=== PATIENT | female | born 1970 | race American Indian/Alaskan Native ===

== ENCOUNTER 2019-09-10 19:27 | Emergency (ER) | payer BC ==
--- NOTE | 2019-09-10 19:56 | Emergency Department Report ---
Blank Doc - Documentation Documentation: 49-year-old female that presents with left leg pain and swelling. Exam: tenderness to the calf area. This initial assessment/diagnostic orders/clinical plan/treatment(s) is/are subject to change based on patient's health status, clinical progression and re- assessment by fellow clinical providers in the ED. Further treatment and workup at subsequent clinical providers discretion. Patient/guardians urged not to elope from the ED as their condition may be serious if not clinically assessed and managed. Initial orders include: 1- Patient sent to [facility] for further evaluation and treatment 2- doppler US
[2019-09-10] MEDS ORDERED: ACETAMINOPHEN 500 MG TAB PO ONE (20:28)
[2019-09-10] MEDS ORDERED: IBUPROFEN 600 MG TAB PO ONE (20:28)
--- NOTE | 2019-09-10 21:01 | Emergency Department Report ---
ED Extremity Problem HPI - General Chief complaint: Extremity Injury, Lower Stated complaint: LEFT LEG SWOLLEN Time Seen by Provider: 09/10/19 19:52 Source: patient Mode of arrival: Ambulatory Limitations: No Limitations - History of Present Illness MD Complaint: extremity pain (left knee), extremity swelling (left knee), joint swelling (left knee), joint paint (left knee) -: Sudden, days(s) (2) Location: left, lower extremity (knee), knee (left) History of Same: No -: Yes arthralgia, No fever, No associated dyspnea, No associated chest pain Radiation: none Severity scale (0 -10): 8 Quality: aching, sharp Consistency: intermittent Improves with: rest Worsens with: weight bearing, walking, exertion, palpation Associated Symptoms: denies other symptoms, arthralgias. denies: chest pain, shortness of breath, fever, myalgias, rash - Related Data Previous Rx's Medication Instructions Recorded Last Taken Type Naproxen 500 mg PO Q12H PRN #30 tablet 09/10/19 Unknown Rx predniSONE [Deltasone] 40 mg PO QDAY #10 tab 09/10/19 Unknown Rx tiZANidine [Zanaflex 4mg TAB] 4 mg PO QHS PRN #15 tablet 09/10/19 Unknown Rx ED Review of Systems ROS: Stated complaint: LEFT LEG SWOLLEN Other details as noted in HPI ED Past Medical Hx - Medications Home Medications: Home Medications Medication Instructions Recorded Confirmed Last Taken Type Naproxen 500 mg PO Q12H PRN #30 tablet 09/10/19 Unknown Rx predniSONE [Deltasone] 40 mg PO QDAY #10 tab 09/10/19 Unknown Rx tiZANidine [Zanaflex 4mg TAB] 4 mg PO QHS PRN #15 tablet 09/10/19 Unknown Rx ED Physical Exam - General Limitations: No Limitations ED Course Vital Signs 09/10/19 19:32 Temperature 97.9 F Pulse Rate 101 H Respiratory 20 Rate Blood Pressure 142/95 O2 Sat by Pulse 97 Oximetry Critical care attestation.: If time is entered above; I have spent that time in minutes in the direct care of this critically ill patient, excluding procedure time. ED Disposition Clinical Impression: Left knee tendonitis, Localized osteoarthritis of left knee Sprain of left knee/leg Qualifiers: Encounter type: initial encounter Qualified Code(s): S83.92XA - Sprain of unspecified site of left knee, initial encounter Disposition: - TO HOME OR SELFCARE Is pt being admited?: No Does the pt Need Aspirin: No Condition: Stable Instructions: Knee Sprain (ED), Tendinitis (ED), Osteoarthritis (ED) Additional Instructions: Take medication with food, drink plenty of fluids and follow-up with your primar care physician in 7 to 10 days for reevaluation. Return to the emergency department immediately if your symptoms get worse or if you develop shortness of breath and chest pain. Prescriptions: tiZANidine [Zanaflex 4mg TAB] 4 mg PO QHS PRN #15 tablet PRN Reason: Muscle Spasm predniSONE [Deltasone] 40 mg PO QDAY #10 tab Naproxen 500 mg PO Q12H PRN #30 tablet PRN Reason: Pain , Severe (7-10) Referrals: PRIMARY MD DAVY [Primary Care Provider] - 3-5 Days [facility] [Provider Group] - 3-5 Days SANGEETHA ESCALANTE MD [Staff Physician] - 3-5 Days Time of Disposition: 20:59 Print Language: TAJIK
[2019-09-10 21:14] VITALS: BP 117/89
== END 2019-09-10 21:16 | disposition home or self-care (01) ==
LOC: ED 19:27
DX: S83.92XA Sprain of unspecified site of left knee, initial encounter (principal); M76.892 Other specified enthesopathies of left lower limb, excluding foot; M17.12 Unilateral primary osteoarthritis, left knee; Z79.899 Other long term (current) drug therapy; X58.XXXA Exposure to other specified factors, initial encounter; Y93.89 Activity, other specified; Y92.89 Other specified places as the place of occurrence of the external cause; Y99.8 Other external cause status
CPT/HCPCS: 99282

== ENCOUNTER 2019-12-02 14:47 | Outpatient (CLI) | payer BC ==
--- NOTE | 2019-12-02 16:25 | Magnetic Resonance Report ---
MRI LEFT KNEE WITHOUT CONTRAST INDICATION: M25.562 PAIN IN LEFT KNEE. COMPARISON: Left knee x-ray 09/15/2019 TECHNIQUE: Multiplanar, multisequence MR images were obtained. FINDINGS: ACL: Mild mucoid degeneration PCL: No significant abnormality. MEDIAL MENISCUS: No significant abnormality. LATERAL MENISCUS: Degenerative moderate horizontal tear anterior horn and anterior junctional zone la teral meniscus. DISTAL QUADRICEPS TENDON: No significant abnormality. PATELLAR TENDON: No significant abnormality. MCL: No significant abnormality. LCL: No significant abnormality. DISTAL IT BAND: No significant abnormality. POSTEROLATERAL CORNER: No significant abnormality. PATELLOFEMORAL ALIGNMENT: Trochlea characteristic for moderate dysplasia ARTICULAR CARTILAGE: Full-thickness chondral loss lateral femoral tibial compartment with moderate larios bchondral cystic change lateral femoral condyle. JOINT SPACE: Moderate knee effusion. Complex popliteal cyst with rupture and moderate amount of fluid extending into medial calf. No intra-articular bodies. BONES: No significant bone marrow edema. No fracture. No osseous lesion. SUBCUTANEOUS SOFT TISSUES: No significant abnormality. ADDITIONAL FINDINGS: None. IMPRESSION: 1. Moderate sized degenerative tear anterior horn body lateral meniscus. 2. Moderate degenerative arthrosis lateral femoral tibial compartment of knee 3. 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
== END 2019-12-02 14:48 | disposition home or self-care (01) ==
LOC: MRI 14:47
PROVIDERS: ATTEND Orthopaedic Surgery
DX: S83.282A Other tear of lateral meniscus, current injury, left knee, initial encounter (principal); M71.22 Synovial cyst of popliteal space [Baker], left knee; M25.462 Effusion, left knee; X58.XXXA Exposure to other specified factors, initial encounter; Y93.89 Activity, other specified; Y92.89 Other specified places as the place of occurrence of the external cause; Y99.8 Other external cause status
CPT/HCPCS: 73721

== ENCOUNTER 2020-01-07 07:10 | Day surgery (SDC) | payer BC ==
[~2020-01-07 07:10] MED LIST: BUPIVACAINE/PF (0.5%) 5 MG/1 ML 30 ML VIAL INFILTRATI ONE; LIDOCAINE (1%) 10 MG/1 ML VIAL 20 ML MDV ONE
[2020-01-07] MEDS ORDERED: BUPIVACAINE/PF (0.5%) 5 MG/1 ML 30 ML VIAL INFILTRATI ONE (08:50)
[2020-01-07] MEDS ORDERED: LIDOCAINE (1%) 10 MG/1 ML VIAL 20 ML MDV INFILTRATI ONE (08:52)
[2020-01-07] MEDS ORDERED: LIDOCAINE (1%) 10 MG/1 ML VIAL 20 ML MDV ONE (08:53)
[2020-01-07 09:14] VITALS: BP 155/97
--- NOTE | 2020-01-07 12:14 | XRay Report ---
INTRAOPERATIVE FLUOROSCOPY: LEFT KNEE INJECTION INDICATION: LT KNEE PAIN. TECHNIQUE: Intraoperative spot images were obtained during the procedure. FINDINGS: [place] are seen projecting in the soft tissues anteriorly above and below the knee joint. Correlate with procedure note. Fluoroscopy Time: 27 seconds. Fluoroscopy Images: 2. Signer Name: Marquez Baca MD Signed: 01/07/2020 12:10 PM Workstation Name: [id number]
--- NOTE | 2020-01-11 12:22 | Procedure Note ---
Date of procedure: 01/07/20 Pre-op diagnosis: Chronic left knee pain Post-op diagnosis: same Procedure: [Left] Geniculate Nerve Block under C-arm fluroscopy procedure The patient taken to the operating room where she was place on the table supine with padded triangular pad placed along the potileal fossa. The [left] knee prepped and draped in usual sterile fashion. 22-gauge spinal needle used to locate areas for injection, the medial and lateral supracondylar ridges, 2 cm proximal to the superior pole of the patella as well as the medial border of the proximal tibia. These areas were anesthized using lidocaine 1% followed by placement of spinal needle near the medial, and lateral geniculate nerves. A mixture of marcaine and lidocaine injected into the deeper structures. There were no complications noted and he tolerated well. Anesthesia: local Surgeon: MARY MOHAMUD Estimated blood loss: minimal Pathology: none Condition: stable Disposition: observation
== END 2020-01-07 07:11 | disposition home or self-care (01) ==
LOC: OR 07:10
PROVIDERS: ATTEND Orthopaedic Surgery
DX: M25.562 Pain in left knee (principal); G89.29 Other chronic pain; M19.90 Unspecified osteoarthritis, unspecified site; I10 Essential (primary) hypertension; Z79.899 Other long term (current) drug therapy

== ENCOUNTER 2020-01-21 07:43 | Day surgery (SDC) | payer BC ==
[2020-01-21] MEDS ORDERED: LACTATED RINGERS 1,000 ML IV SCH (08:00)
[2020-01-21] MEDS ORDERED: BACTERIOSTATIC SODIUM CHLORIDE 0.9% 30 ML VIAL INFILTRATI ONE (08:13)
--- NOTE | 2020-01-21 08:22 | Anesthesia Day of Surgery ---
Anesthesia Day of Surgery - Day of Surgery Patient Examined: Yes Patient H&P Reviewed: Yes Patient is NPO: Yes
--- NOTE | 2020-01-21 08:27 | Anesthesia Consultation ---
Anesthesia Consult and Med Hx Date of service: 01/21/20 - Airway Anesthetic Teeth Evaluation: Good (Missing teeth) ROM Head & Neck: Adequate Mental/Hyoid Distance: Adequate Mallampati Class: Class II Intubation Access Assessment: Good - Pre-Operative Health Status ASA Pre-Surgery Classification: ASA2 Proposed Anesthetic Plan: MAC - Pulmonary Hx Smoking: No Hx Sleep Apnea: No (SUSAN PRE SCREEN LOW RISK) - Cardiovascular System Hx Hypertension: Yes (X 1 MONTH) - Central Nervous System Hx Neuromuscular Disorder: Yes (R) Hx Psychiatric Problems: No - Other Systems Hx Cancer: No Hx Obesity: Yes
[2020-01-21] MEDS ORDERED: MIDAZOLAM 2 MG/2 ML INJ ONE (09:27)
[2020-01-21] MEDS ORDERED: LIDOCAINE MPF (2%) 20 MG/1 ML VIAL 5 ML ONE (09:37)
[2020-01-21] MEDS ORDERED: propofoL 200 MG/20 ML VIAL IV ONE ×3 (09:37→10:26)
[2020-01-21] MEDS ORDERED: HYDROmorphone 1 MG/1 ML INJ ONE (09:37)
[2020-01-21] MEDS ORDERED: KETAMINE/STERILE WATER 50 MG/ML SYRINGE ONE (09:38)
[2020-01-21] MEDS ORDERED: methylPREDNISolone ACETATE 40 MG/1 ML INJ ONE (09:46)
[2020-01-21] MEDS ORDERED: BUPIVACAINE/PF (0.5%) 5 MG/1 ML 10 ML VIAL INFILTRATI ONE (09:46)
[2020-01-21] MEDS ORDERED: LIDOCAINE (1%) 10 MG/1 ML VIAL 20 ML MDV ONE (09:46)
[2020-01-21] MEDS ORDERED: MIDAZOLAM 2 MG/2 ML INJ IV NR (10:00)
[2020-01-21] MEDS ORDERED: BUPIVACAINE/PF (0.5%) 5 MG/1 ML 30 ML VIAL INFILTRATI ONE (10:20)
[2020-01-21] MEDS ORDERED: methylPREDNISolone ACETATE 40 MG/1 ML INJ INTRA-ARTI ONE (10:20)
[2020-01-21] MEDS ORDERED: WATER FOR IRRIG STERILE 1,500 ML BOTTLE IR ONE (10:21)
[2020-01-21] MEDS ORDERED: LIDOCAINE (1%) 10 MG/1 ML VIAL 20 ML MDV INFILTRATI ONE (10:21)
--- NOTE | 2020-01-21 10:45 | Procedure Note ---
Date of procedure: 01/21/20 Pre-op diagnosis: Left knee pain Post-op diagnosis: same Procedure: Geniculate nerve radiofrequency ablation [left] knee Procedure The patient was brought to the OR and placed in the OR table supine position patient was Given IV and was masked the procedure following this the patient's [left] knee was prepped and draped in the routine sterile manner. A timeout procedure was done to identify the patient and the correct operative site. Under C-arm visualization the skin was anesthetized with the 1% lidocaine at both the medial and lateral suprapatellar regions as well as the proximal portion of the medial tibial metaphysis. Following this the the introducers radiofrequency ablator introducer probes were inserted into the distal femoral metaphysis close to the bone and midway along the sagittal plane as well as along the proximal tibial metaphysis to be appropriate place simultaneously following this following this the probe were checked for full motor nerve function there did not appear to be any next the radiofrequency ablator was turned on and the nerves were ablated to a temperature of 60C for approximately 2-1/2 minutes each. A mixture of Depo-Medrol and lidocaine was then injected into each location to help with postoperative pain and inflammation. The patient tolerated the procedure there were no complications he was then taken to postanesthesia recovery in a stable condition Anesthesia: other (IV sedation) Surgeon: MARY MOHAMUD Estimated blood loss: minimal Pathology: none Condition: stable Disposition: PACU
[2020-01-21] MEDS ORDERED: ACETAMINOPHEN 500 MG TAB PO SCH (11:00)
--- NOTE | 2020-01-21 11:32 | Post Anesthesia Evaluation ---
- Post Anesthesia Evaluation Patient Participated: Yes Airway Patent: Yes Stable Respiratory Function: Yes Nausea/Vomiting: No Temp > 96.8F: Yes Pain Manageable: Yes Adequeate Hydration: Yes Anesthesia Complications: No Block Receding Appropriately: Not Applicable Patient on Ventilator: No
--- NOTE | 2020-01-21 11:49 | XRay Report ---
XR knee 1-2V LT INDICATION / CLINICAL INFORMATION: LT KNEE PAIN. COMPARISON: None available. FINDINGS: Multiple needle seen in the left knee Fluoroscopy time: 9 seconds. Fluoroscopic images: 3. IMPRESSION: Multiple needle seen in the left knee Signer Name: Germain Thornton MD FACPaula Signed: 01/21/2020 11:44 AM Workstation Name: [id number]
[2020-01-21 12:33] VITALS: BP 114/67
== END 2020-01-21 11:56 | disposition home or self-care (01) ==
LOC: OR 07:43
PROVIDERS: ATTEND Orthopaedic Surgery
DX: M25.562 Pain in left knee (principal); I10 Essential (primary) hypertension; M19.90 Unspecified osteoarthritis, unspecified site; E66.9 Obesity, unspecified; Z79.899 Other long term (current) drug therapy; Z68.32 Body mass index [BMI] 32.0-32.9, adult
CPT/HCPCS: 64624; 73560; 81025; A4649; J1030; J1170; J2250; J2704; J3490; J7120

== ENCOUNTER 2020-02-03 11:26 | Outpatient (CLI) | payer BC ==
[2020-02-03 12:34] LABS: Hematocrit 32.9 % (30.3-42.9); Hemoglobin 10.3 gm/dl (10.1-14.3); Mean Corpuscular HGB Conc 31 % (30-34); Mean Corpuscular Volume 59 fl (79-97); Red Blood Count 5.58 M/mm3 (3.65-5.03)
[2020-02-03 12:35] LABS: Platelet Count 379 K/mm3 (140-440); Red Cell Distribution Width 23.6 % (13.2-15.2)
[2020-02-03 12:39] LABS: Alanine Aminotransferase 16 units/L (7-56); Albumin 4.2 g/dL (3.9-5); BUN/Creatinine Ratio 18; Blood Urea Nitrogen 14 mg/dL (7-17); Calcium 9.8 mg/dL (8.4-10.2); Hemolysis Index 0
[2020-02-03 12:47] LABS: Erythrocyte Sedimentation Rate 5 mm/Hr (0-20)
== END 2020-02-03 11:27 | disposition home or self-care (01) ==
LOC: LAB 11:26
PROVIDERS: ATTEND Internal Medicine Rheumatology
DX: M06.89 Other specified rheumatoid arthritis, multiple sites (principal)
CPT/HCPCS: 36415; 80053; 85027; 85652; 86140